=== PATIENT | female | born 1990 | race Caucasian/White ===

== ENCOUNTER 2017-03-29 16:03 | Emergency (ER) | payer SELFPAY ==
[~2017-03-29] VITALS: Ht 157.5 cm; Wt 107.6 kg
[2017-03-29] MEDS ORDERED: ACETAMINOPHEN 500 MG TABLET ONE (16:56)
[2017-03-29] MEDS ORDERED: ACETAMINOPHEN 500 MG TABLET PO ONE (17:00)
[2017-03-29] MEDS ORDERED: IBUPROFEN 200 MG TABLET ONE (17:07)
[2017-03-29 17:11] LABS: RAPID INFLUENZA A POSITIVE (Negative); RAPID INFLUENZA B Negative (Negative)
[2017-03-29] MEDS ORDERED: IBUPROFEN 200 MG TABLET PO ONE (17:30)
[2017-03-29 17:31] VITALS: BP 115/78
== END 2017-03-29 17:40 | disposition home or self-care (01) ==
LOC: ED 17:34
DX: J09.X2 Influenza due to identified novel influenza A virus with other respiratory manifestations (principal); J40 Bronchitis, not specified as acute or chronic
CPT/HCPCS: 71020; 87400; 99285

== ENCOUNTER 2017-06-16 09:13 | Emergency (ER) | payer SELFPAY ==
[~2017-06-16] VITALS: Ht 157.5 cm; Wt 109.6 kg
[2017-06-16 09:16] VITALS: BP 136/98
[2017-06-16] MEDS ORDERED: BACITRACIN ZINC OINT 500U/GM, 0.9 GM ONE (09:40)
[2017-06-16] MEDS ORDERED: DIPH,PERTUSS(ACELL),TET VAC/PF 0.5 ML IM-VACC ONE ×2 (10:00→10:06)
== END 2017-06-16 10:13 | disposition home or self-care (01) ==
LOC: ED 10:07
DX: T23.211A Burn of second degree of right thumb (nail), initial encounter (principal); X10.2XXA Contact with fats and cooking oils, initial encounter; Y93.89 Activity, other specified; Y99.8 Other external cause status; Y92.89 Other specified places as the place of occurrence of the external cause
CPT/HCPCS: 90471; 90715